=== PATIENT | male | born 1995 | race African-American/Black ===

== ENCOUNTER 2017-04-04 12:44 | Outpatient (CLI) | payer OTHER | END 2017-04-04 12:49 | disposition home or self-care (01) | LOC: LAB 12:44 | DX: B27.90 Infectious mononucleosis, unspecified without complication (principal); Z11.59 Encounter for screening for other viral diseases ==

== ENCOUNTER → 2017-04-09 14:05 | Outpatient (CLI) | payer OTHER | END | disposition home or self-care (01) | LOC: PPHC LAB 14:05 | DX: Z02.0 Encounter for examination for admission to educational institution (principal) ==

== ENCOUNTER 2017-04-09 14:38 | Outpatient (CLI) | payer OTHER | END 2017-04-09 14:44 | disposition home or self-care (01) | LOC: LAB 14:38 | DX: B26.89 Other mumps complications (principal); Z01.84 Encounter for antibody response examination; Z11.59 Encounter for screening for other viral diseases ==

== ENCOUNTER → 2017-04-09 | Outpatient (CLI) | payer OTHER | END | disposition home or self-care (01) | LOC: PPH VACUNA 13:50 | DX: Z23 Encounter for immunization (principal) ==

== ENCOUNTER → 2017-04-11 | Outpatient (CLI) | payer OTHER | END | disposition home or self-care (01) | LOC: PPHC 13:12 | DX: Z02.0 Encounter for examination for admission to educational institution (principal) ==

== ENCOUNTER → 2022-05-29 | Emergency (ER) | payer OTHER ==
[~2022-05-29] VITALS: Ht 167.6 cm; Wt 73.0 kg
[~2022-05-29] MED LIST: AMOX-CLAV 875-1 EAC1 PO; MUPIROCIN1 G1 TOP
== END | disposition home or self-care (01) ==
LOC: ER 23:33
DX: S81.051A Open bite, right knee, initial encounter (principal); W54.0XXA Bitten by dog, initial encounter; Y93.89 Activity, other specified; Y92.89 Other specified places as the place of occurrence of the external cause; Y99.9 Unspecified external cause status

== ENCOUNTER 2024-01-31 05:59 | Emergency (ER) | payer OTHER ==
[~2024-01-31] VITALS: Ht 167.6 cm; Wt 74.8 kg
[2024-01-31] MEDS ORDERED: ACETAMINOPHEN 500 MG GEL..CAP PO STA (07:51)
[2024-01-31] MEDS ORDERED: CEFTRIAXONE SODIUM 2,000 MG VIAL IM STA (07:51)
== END 2024-01-31 08:29 | disposition home or self-care (01) ==
LOC: ER
DX: J03.80 Acute tonsillitis due to other specified organisms (principal)

== ENCOUNTER 2024-02-11 22:12 | Emergency (ER) | payer OTHER ==
[~2024-02-11] VITALS: Ht 167.6 cm; Wt 74.8 kg
[2024-02-11 23:10] VITALS: BP 120/81; O2SAT 99
[2024-02-12] MEDS ORDERED: AMOX-CLAV 875-1 EACH PO (01:27)
[2024-02-12] MEDS ORDERED: MUPIROCIN1 G1 TOP (01:27)
[2024-02-12] MEDS ORDERED: KETO10TA2 PO ×2 (01:28)
== END 2024-02-12 01:32 | disposition home or self-care (01) ==
LOC: ER 22:14
DX: S81.851A Open bite, right lower leg, initial encounter (principal); W54.0XXA Bitten by dog, initial encounter; Y93.89 Activity, other specified; Y92.488 Other paved roadways as the place of occurrence of the external cause; S69.82XA Other specified injuries of left wrist, hand and finger(s), initial encounter